=== PATIENT | female | born 1980 | race Hispanic/Latino ===

== ENCOUNTER 2024-06-20 06:08 | Emergency (ER) | payer SELFPAY ==
[~2024-06-20] VITALS: Ht 157.5 cm; Wt 57.6 kg
--- NOTE | 2024-06-20 06:31 | ERN ---
General Chief Complaint: Anxiety/Panic Attack Stated Complaint: HOT FLASHES, ANXIETY,EMOTIONAL UPSET Time Seen by MD: 06:10 History of Present Illness Initial Comments Mrs Mccurdy is a 43-year-old female with a significant past medical history of anxiety and drug abuse who comes in today short of breath. Patient reports at midnight she did cocaine. After the fact the patient did get in a fight with her and the police was called. Patient and her were both arrested. Patient had complaints of shortness of breath and was brought here by police department Allergies: Coded Allergies: No Known Allergies (Unverified Allergy, Unknown, 06/20/24) Past Medical History Past Medical History: Diabetes-Type II, High Cholesterol Past Surgical History: Other Surgical History Other: NEEDLE BIOPSY ROS Dictation Constitutional: Negative for fever,chills, and weight loss Eyes: Negative for injury, pain,redness, and discharge ENT: Negative for injury,pain or swelling Cardiovascular: Palpitations Respiratory: Positive shortness of breath Abdomen/GI: Negative for abdominal pain, nausea, vomiting, diarrhea, and constipation Back: Negative for injury and pain : Negative for injury, bleeding and discharge MS/Extremity: Negative for injury and deformity Skin: Negative for rash, and discoloration Neuro: Negative for headache, weakness, numbness, tingling, and seizure Psych: Negative for suicide ideation, homicidal ideation, and hallucinations Physical Exam Physical Exam Dictation General: Anxious female that is very tearful Head/Face: Normocephalic, atraumatic Eyes: PERRL, EOMI ENT: oral cavity clear Neck: Trachea midline, supple, Cardiovascular: Tachycardic Respiratory: CTAB, no respiratory distress, No rales or wheezes Abdomen: Soft, non-tender, non-distended, normal bowel sounds, no guarding or rebound. Skin: Warm, dry, normal turgor, no rash MS/Extremity: Pulses equal, no cyanosis, neurovascular intact, FROM Neuro: COAx4 Psych: Anxious female who is crying and has depressed mood Results Laboratory and Microbiology Lab and Micro Result Laboratory Tests Test 06/20/24 06:24 06/20/24 06:39 Urine Opiates Screen NEGATIVE (NEGATIVE) Urine Barbiturates Screen NEGATIVE (NEGATIVE) Urine Phencyclidine Screen NEGATIVE (NEGATIVE) Urine Amphetamines Screen NEGATIVE (NEGATIVE) Urine Benzodiazepines Screen NEGATIVE (NEGATIVE) Urine Cocaine Screen POSITIVE (NEGATIVE) H Urine Marijuana (THC) Screen NEGATIVE (NEGATIVE) White Blood Count 12.0 K/uL (4.8-10.8) H Red Blood Count 4.18 MIL/uL (4.00-5.50) Hemoglobin 13.0 g/dL (12.0-16.0) Hematocrit 36.8 % (36-48) Mean Corpuscular Volume 88.0 fL (79-99) Mean Corpuscular Hemoglobin 31.1 pg (27.0-33.0) Mean Corpuscular Hemoglobin Concent 35.3 g/dL (32.0-36.0) Red Cell Distribution Width 12.3 % (11.0-15.5) Platelet Count 242 K/uL (130-400) Mean Platelet Volume 10.5 fL (7.5-10.5) Immature Granulocyte % (Auto) 0.7 % (0-1) Neutrophils (%) (Auto) 83.2 % (40.0-77.0) H Lymphocytes (%) (Auto) 10.8 % (21.0-51.0) L Monocytes (%) (Auto) 4.6 % (3.0-13.0) Eosinophils (%) (Auto) 0.0 % (0.0-8.0) Basophils (%) (Auto) 0.7 % (0.0-5.0) Neutrophils # (Auto) 10.0 K/uL (1.8-7.7) H Lymphocytes # (Auto) 1.3 K/uL (1.0-4.8) Monocytes # (Auto) 0.6 K/uL (0.1-1.0) Eosinophils # (Auto) 0.00 K/uL (0.00-0.70) Basophils # (Auto) 0.08 K/uL (0.00-0.20) Absolute Immature Granulocyte (auto 0.08 K/uL (0-1) Nucleated Red Blood Cells 0.0 % (0.0-0.19) Sodium Level 137 mmol/L (136-145) Potassium Level 5.0 mmol/L (3.5-5.1) Chloride Level 99 mmol/L (101-111) L Carbon Dioxide Level 22 mmol/L (21-32) Blood Urea Nitrogen 12 mg/dL (7-18) Creatinine 0.7 mg/dL (0.5-1.0) Glomerular Filtration Rate Calc 110 mL/min (>90) Random Glucose 363 mg/dL (70-105) H Total Calcium 8.9 mg/dL (8.5-10.1) Total Creatine Kinase 177 U/L (21-232) Serum Test, Qualitative NEGATIVE (NEGATIVE) Salicylates Level 3.3 mg/dL (2.8-20.0) Acetaminophen Level < 1 mcg/mL (10-30) L Serum Alcohol 173 mg/dL (0-10) H MDM DR HERMOSILLO: I took over care at 0700 CC: Anxiety type symptoms, cocaine abuse, SOB Comorbidities: Diabetes, high cholesterol, drug abuse Differential diagnosis: Drug abuse, alcohol abuse, anxiety, arrhythmia, other EKG (independently interpreted by me): Sinus tachycardia rate of 117 normal axis good R-wave progression intervals are stable. No STEMI Labs ( independently ordered and independently interpreted by me): CBC shows mild leukocytosis [id number] with a left shift. No bands. Basic metabolic panel stable other than hyperglycemia 363. He is she is negative. CK is negative. Toxicology positive for cocaine, salicylate and acetaminophen negative. Alcohol 173. Patient received 1 L normal saline here in the ER. On re-evaluation patient is stable. Mildly tachycardic consistent with cocaine use otherwise she is unremarkable. Baseline mentation GCS 15. We will DC. ED Course Orders Procedure Category Date Status Time Cbc With Differential LAB 06/20/24 Complete 06:10 Alcohol, Blood LAB 06/20/24 Complete 06:10 Salicylate LAB 06/20/24 Complete 06:10 Acetaminophen LAB 06/20/24 Complete 06:10 Testing, LAB 06/20/24 Complete Serum Hcg 06:10 Creatine Kinase, Total LAB 06/20/24 Complete 06:10 Basic Metabolic Panel LAB 06/20/24 Complete 06:10 Drug Screen Urine LAB 06/20/24 Complete 06:10 0.9%Nacl 1000ml (Ns PHA 06/20/24 In Process 1000ml) 06:30 12 Lead Ekg Tracing- EKG 06/20/24 Logged Technical 06:30 Current Medications Medications (Trade) Dose Ordered Sig/Preeti Route PRN Reason Start Time Stop Time Status Last Admin Dose Admin Sodium Chloride 1,002 ml @ 334 mls/hr ONCE ONCE IV 06/20/24 06:30 06/20/24 09:29 06/20/24 06:44 Vital Signs Date Time Temp Pulse Resp B/P (MAP) Pulse Ox O2 Delivery O2 Flow Rate FiO2 06/20/24 07:24 98.6 111 20 122/69 96 Room Air* 0 21 06/20/24 06:27 98.6 131 24 135/69 98 Room Air* 0 21 06/20/24 06:10 98.1 134 20 145/76 98 Room Air 0 06/20/24 06:10 98.1 134 20 145/76 98 Room Air* 0 21 DX & DISP Disposition: Discharge Departure Impression: Primary Impression: Cocaine abuse Additional Impressions: Alcohol intoxication, Hyperglycemia Condition: Stable Additional Instructions: Your symptoms are consistent with cocaine and alcohol abuse. Your vital signs showed mildly elevated heart rate but is otherwise unremarkable. Your EKG is unremarkable. Your lab work (CBC, BMP, CK, serum HCG, Tylenol level, salicylate level) shows high blood glucose but is otherwise unremarkable. You received 1 L normal saline here in the ER. I recommend reducing alcohol intake and recreational substance use. You can take [id number] Tylenol or ibuprofen as needed. Please return to the emergency department as needed. AUDREY CALDWELL MD Jun 20, 2024 06:31 VLADIMIR HERMOSILLO DO Jun 20, 2024 07:40
[2024-06-20] MEDS: 0.9%NACL 1000ML 1,002 ML IV ONE (06:44)
[2024-06-20 06:50] LABS: BASOPHILS # (AUTO) 0.08 K/uL (0.00-0.20); BASOPHILS % (AUTO) 0.7 % (0.0-5.0); HEMATOCRIT 36.8 % (36-48); IMMATURE GRANULOCYTE ABSOLUTE 0.08 K/uL (0-1); LYMPHOCYTES # (AUTO) 1.3 K/uL (1.0-4.8); LYMPHOCYTES % (AUTO) 10.8 % (21.0-51.0); MEAN CORPUSCULAR HEMOGLOBIN 31.1 pg (27.0-33.0); MEAN CORPUSCULAR HGB CONC 35.3 g/dL (32.0-36.0); MONOCYTES # (AUTO) 0.6 K/uL (0.1-1.0); MONOCYTES % (AUTO) 4.6 % (3.0-13.0); NEUTROPHILS % (AUTO) 83.2 % (40.0-77.0); PLATELET COUNT (AUTO) 242 K/uL (130-400); RED BLOOD CELL COUNT(AUTO) 4.18 MIL/uL (4.00-5.50); RED CELL DISTRIBUTION WIDTH 12.3 % (11.0-15.5)
[2024-06-20 06:54] LABS: AMPHET/METH SCREEN,URINE NEGATIVE (NEGATIVE); BARBITURATE SCREEN, URINE NEGATIVE (NEGATIVE); BENZODIAZEPINES SCREEN,URINE NEGATIVE (NEGATIVE); CANNABINOID SCREEN,URINE NEGATIVE (NEGATIVE); COCAINE SCREEN,URINE POSITIVE (NEGATIVE); OPIATE SCREEN,URINE NEGATIVE (NEGATIVE); PHENCYCLIDINE SCREEN,URINE NEGATIVE (NEGATIVE)
--- NOTE | 2024-06-20 06:59 | NUR ---
HAND OFF REPROT GIVEN TO IMELDA ROGER
[2024-06-20 07:11] LABS: CARBON DIOXIDE 22 mmol/L (21-32); CHLORIDE 99 mmol/L (101-111); CREATINE KINASE, TOTAL 177 U/L (21-232); CREATININE 0.7 mg/dL (0.5-1.0); GLOMERULAR FILTR. RATE CALC 110 mL/min (>90); GLUCOSE,RANDOM 363 mg/dL (70-105); SODIUM SERUM 137 mmol/L (136-145); UREA NITROGEN, BLOOD 12 mg/dL (7-18)
[2024-06-20 07:25] LABS: ALCOHOL, BLOOD 173 mg/dL (0-10); SALICYLATE 3.3 mg/dL (2.8-20.0)
[2024-06-20 07:31] LABS: ACETAMINOPHEN < 1 mcg/mL (10-30)
[2024-06-20] MEDS: INSULIN humuLIN R 100 UNIT/ML 3ML IV ONE (08:18)
[2024-06-20 08:31] VITALS: BP 133/68; PULSE 107; RESP 20; TEMP 98.6; O2SAT 98
--- NOTE | 2024-06-21 07:37 | EKG ---
[facility] Test Date: 2024-06-20 Test Time: 06:41:01 Pat Name: MIKHAIL BARNARD Department: [facility] Room: Gender: F Internal Review And Audit Compliance: [id number] : [id number] Requested By: AUDREY CALDWELL Order Number: [id number] Reading MD: Berenice Vickers Measurements Intervals Waka Rate: 117 P: 57 NM: 133 QRS: 28 QRSD: 79 T: 12 QT: 333 QTc: 465 Interpretive Statements Sinus tachycardia Probable left atrial enlargement No previous ECG available for comparison Electronically Signed On 06-21-2024 10:47:55 [employer] by Berenice Vickers Please click the below link to view image of tracing.
== END 2024-06-20 08:50 | disposition home or self-care (01) ==
LOC: EDH 06:08
DX: F14.10 Cocaine abuse, uncomplicated (principal); F10.129 Alcohol abuse with intoxication, unspecified; E11.65 Type 2 diabetes mellitus with hyperglycemia; E78.00 Pure hypercholesterolemia, unspecified; Z65.3 Problems related to other legal circumstances
CPT/HCPCS: 99284; 96374; 96361; 82550; 80048; 80305; 84703; 85025; 36415; 93005; J1815; G0481; J7030

== ENCOUNTER 2025-07-22 12:06 | Emergency (ER) | payer BC ==
[~2025-07-22] VITALS: Ht 157.5 cm; Wt 60.9 kg
[~2025-07-22 12:06] MED LIST: CEFD300C3 PO; INSU3INS3 SQ; METF-444 PO
[2025-07-22 12:56] LABS: IMMATURE GRANULOCYTE ABSOLUTE 0.05 K/uL (0-1); NUCLEATED RED BLOOD CELLS 0.0 % (0.0-0.19); PLATELET COUNT (AUTO) 366 K/uL (130-400); RED BLOOD CELL COUNT(AUTO) 4.73 MIL/uL (4.00-5.50); RED CELL DISTRIBUTION WIDTH 12.5 % (11.0-15.5); WHITE BLOOD COUNT (AUTO) 7.8 K/uL (4.8-10.8)
[2025-07-22 13:06] LABS: CREATININE 0.7 mg/dL (0.5-1.0); GLOMERULAR FILTR. RATE CALC 109.0 mL/min (>90); GLUCOSE,RANDOM 264.0 mg/dL (70-105); SODIUM SERUM 132.0 mmol/L (136-145); UREA NITROGEN, BLOOD 15.0 mg/dL (7-18)
[2025-07-22 13:14] LABS: HCG,QUALITATIVE URINE NEGATIVE (NEGATIVE)
[2025-07-22 13:15] LABS: APPEARANCE,URINE CLEAR (CLEAR); GLUCOSE, URINE (UA) >=1000 mg/dL (NEGATIVE); LEUKOCYTE ESTERASE ,URINE NEGATIVE Leu/uL (NEGATIVE); NITRATE,URINE NEGATIVE (NEGATIVE); OCCULT BLOOD,URINE NEGATIVE (NEGATIVE)
[2025-07-22 13:29] LABS: ADD UA MICROSCOPIC YES
[2025-07-22 13:37] LABS: SQUAMOUS EPITHELIAL CELL,UR FEW /HPF (0-2)
[2025-07-22] MEDS ORDERED: CEPH500T PO (14:55)
--- NOTE | 2025-07-22 14:58 | ERN ---
General Chief Complaint: Back Pain or Injury Stated Complaint: LOWER BACK PAIN Time Seen by MD: 13:16 Source: patient History of Present Illness Initial Comments Ms. Mccurdy, 66F came to ED with severe left flank pain since 2 days. Flank pain is on the left side, severe 8 x 10, radiating to the right side, not associated with fever or vomiting and relieved mildly with ibuprofen. reports history of UTI for which she got admitted last week and got discharge this Friday with outpatient antibiotics. She reports completing the course but was still having severe left flank pain and was afraid that her UTI and kidney infection are back and that prompted her to come to the ER. No history of fever or chills or vomiting or nausea or loose stools. Reports pain 8 x 10 and currently uses ibuprofen. Timing/Duration: constant Severity: moderate Modifying Factors: improves with medication Allergies: Coded Allergies: No Known Allergies (Unverified Allergy, Unknown, 06/20/24) Home Meds Active Scripts Cefdinir (Cefdinir) 300 Mg Capsule, 1 CAP PO BID for 7 Days, #14 CAP 0 Refills Prov:JORDYN FERNANDEZ MD 07/14/25 Reported Medications Metformin HCl (Metformin HCl) 500 Mg Tablet, 1 TAB PO BID for 30 Days, #60 TAB 0 Refills 07/12/25 Insulin Glargine,Hum.rec.anlog (Lantus Solostar) 100 Unit/Ml (3 Ml) Insuln.pen, 20 UNIT SQ DAILY for 30 Days, ML 0 Refills 07/12/25 Past Medical History Past Medical History: Diabetes-Type II Past Surgical History: None Surgical History Other: NEEDLE BIOPSY Gastrointestinal/Abdominal: (+) abdominal pain Musculoskeletal: (+) Flank Pain Review of Systems: was completed, & the rest were negative. Physical Exam General Appearance: (+) moderate distress Orientation: (+) alert, (+) oriented x 3 Head/Face Trauma: No Eye: bilateral eye normal inspection Ear, Nose, Throat: (+) hearing grossly normal Neck: (+) normal inspection Respiratory: (+) chest non-tender, (+) lungs clear Heart: (+) regular, (+) no gallop Vascular: (+) no edema Gastrointestinal: (+) soft, (+) tender Gastrointestinal Comment Left lumbar pain, increased on palpation on a scale of 8 x 10 Breast Exam: (+) deferred Genital: (+) deferred Rectal: (+) deferred Back: (+) normal inspection Extremities: (+) normal range of motion, (+) non-tender, (+) normal inspection Neurologic/Psychiatric: (+) normal speech, (+) no motor defecits, (+) no sensory deficits Skin: (+) normal color Results Laboratory and Microbiology Lab and Micro Result Laboratory Tests Test 07/22/25 12:16 07/22/25 12:34 Urine Color LIGHT-YELLOW (YELLOW) Urine Appearance CLEAR (CLEAR) Urine pH 5.5 (5.0-8.0) Urine Specific [place] 1.018 (1.001-1.031) Urine Protein 10 mg/dL (NEGATIVE) H Urine Glucose (UA) >=1000 mg/dL (NEGATIVE) H Urine Ketones NEGATIVE mg/dL (NEGATIVE) Urine Occult Blood NEGATIVE (NEGATIVE) Urine Nitrate NEGATIVE (NEGATIVE) Urine Bilirubin NEGATIVE mg/dL (NEGATIVE) Urine Urobilinogen 0.2 mg/dL (0.2-1.0) Urine Leukocyte Esterase NEGATIVE Mary/uL Urine RBC 0-1 /HPF (0-1) Urine WBC 6-10 /HPF (0-1) H Urine Squamous Epithelial Cells FEW /HPF (0-2) Urine Bacteria None /HPF (None Seen) Urine HCG, Qualitative NEGATIVE (NEGATIVE) White Blood Count 7.8 K/uL (4.8-10.8) Red Blood Count 4.73 MIL/uL (4.00-5.50) Hemoglobin 14.2 g/dL (12.0-16.0) Hematocrit 41.7 % (36-48) Mean Corpuscular Volume 88.2 fL (79-99) Mean Corpuscular Hemoglobin 30.0 pg (27.0-33.0) Mean Corpuscular Hemoglobin Concent 34.1 g/dL (32.0-36.0) Red Cell Distribution Width 12.5 % (11.0-15.5) Platelet Count 366 K/uL (130-400) Mean Platelet Volume 9.5 fL (7.5-10.5) Immature Granulocyte % (Auto) 0.6 % (0-1) Neutrophils (%) (Auto) 71.7 % (40.0-77.0) Lymphocytes (%) (Auto) 21.2 % (21.0-51.0) Monocytes (%) (Auto) 5.2 % (3.0-13.0) Eosinophils (%) (Auto) 0.4 % (0.0-8.0) Basophils (%) (Auto) 0.9 % (0.0-5.0) Neutrophils # (Auto) 5.6 K/uL (1.8-7.7) Lymphocytes # (Auto) 1.7 K/uL (1.0-4.8) Monocytes # (Auto) 0.4 K/uL (0.1-1.0) Eosinophils # (Auto) 0.03 K/uL (0.00-0.70) Basophils # (Auto) 0.07 K/uL (0.00-0.20) Absolute Immature Granulocyte (auto 0.05 K/uL (0-1) Nucleated Red Blood Cells 0.0 % (0.0-0.19) Sodium Level 132 mmol/L (136-145) L Potassium Level 4.3 mmol/L (3.5-5.1) Chloride Level 99 mmol/L (101-111) L Carbon Dioxide Level 28 mmol/L (21-32) Blood Urea Nitrogen 15 mg/dL (7-18) Creatinine 0.7 mg/dL (0.5-1.0) Glomerular Filtration Rate Calc 109 mL/min (>90) Random Glucose 264 mg/dL (70-105) H Total Calcium 8.9 mg/dL (8.5-10.1) MDM Differential diagnosis: Pyelonephritis of left kidney The patient came to the ER with severe left flank pain since 2 days with history of recent discharge with UTI. Rationale: This consult and ordered secondary to share decision-making include CBC, BMP, urinalysis, urine culture, CT abdomen without contrast Previous outside records reviewed: Old ER visits Medications-per medication reconciliation Need for hospitalization: Patient does not meet criteria for hospitalization. Patient is stable and can be discharged Need for emergency major/minor surgery: No There are no social concerns with this patient Prescription drug management Description we will include symptomatic care. Patient received 1 L NaCl bolus, Rocephin 1 g IV and Toradol 15 mg IM for pain I independently interpreted the test that were performed, results were reviewed by me and considered finding from Radiology ordered Medical management and examination interpretation discussions were had by me with other qualified health aged or disabled carer as indicated for the patient's care ED Course Orders Procedure Category Date Status Time Cbc With Differential LAB 07/22/25 Complete 12: Basic Metabolic Panel LAB 07/22/25 Complete 12:22 Urinalysis Profile LAB 07/22/25 Complete 12: ,Urine Test LAB 07/22/25 Complete 12:22 Ketorolac PHA 07/22/25 Complete Tromethamine 15mg/Ml 13:30 Culture Urine CHELLE 07/22/25 In Process 13:38 0.9%Nacl 1000ml (Ns PHA 07/22/25 Complete 1000ml) 14:30 Ceftriaxone 1g Vial PHA 07/22/25 Complete (Rocephine 1g Inj) 14:30 Current Medications Medications (Trade) Dose Ordered Sig/Preeti Route PRN Reason Start Time Stop Time Status Last Admin Dose Admin Ceftriaxone Sodium (ROCEphine 1G INJ) 1 gm ONCE ONCE IVPB 07/22/25 14:30 07/22/25 14:31 DC Ketorolac Tromethamine (toRADol) 15 mg ONCE ONCE IM 07/22/25 13:30 07/22/25 13:31 DC 07/22/25 13:36 Sodium Chloride 1,000 ml @ 0 mls/hr ONCE ONCE IV 07/22/25 14:30 07/22/25 14:31 DC Vital Signs Date Time Temp Pulse Resp B/P (MAP) Pulse Ox O2 Delivery O2 Flow Rate FiO2 07/22/25 13:10 98.1 75 17 100 Room Air* 0 21 07/22/25 12:07 98.2 20 157/91 100 Room Air DX & DISP Disposition: Discharge Departure Impression: Primary Impression: Pyelonephritis of left kidney Critical Time: 30 minutes Condition: Stable Scripts Cephalexin (Cephalexin) 500 Mg Tablet 1 TAB PO BID for 7 Days, #14 TAB 0 Refills Prov: MARGUERITE SLADE MD 07/22/25 Additional Instructions: You have left kidney infection. Your infection is improving but not completely resolved. Take cephalexin 500 mg twice a day for 7 days Take ibuprofen or Tylenol for pain or fever Drink plenty of fluids to help flush the kidneys, rest and avoid strenuous activity until fully recovered, urinate regularly and do not hold urine Mild flank pain or fatigue may persist for a few days as the infection continues to resolve. Symptoms should gradually improve. Follow up with primary care physician in 3 days for further workup and management Return to emergency if the fever is more than 101, worsening flank or abdominal pain, persistent vomiting or inability to keep fluids or medications down, new or worsening burning with urination, blood in the urine or dizziness/weakness/ confusion Referrals: SELF,REFERRAL (PCP) MARGUERITE SLADE MD Jul 22, 2025 14:58
[2025-07-22] MEDS: 0.9%NACL 1000ML 1,000 ML IV ONE (15:21)
[2025-07-22 15:58] VITALS: BP 148/80; PULSE 72; RESP 17; TEMP 98.1; O2SAT 99
== END 2025-07-22 16:06 | disposition home or self-care (01) ==
LOC: EDH 12:06
DX: N12 Tubulo-interstitial nephritis, not specified as acute or chronic (principal); E11.9 Type 2 diabetes mellitus without complications; Z79.84 Long term (current) use of oral hypoglycemic drugs; Z79.4 Long term (current) use of insulin; Z87.440 Personal history of urinary (tract) infections
CPT/HCPCS: 99284; 96365; 80048; 85025; 87086; 81001; 81025; 36415; 96372; J1885; J7030; J0696